=== PATIENT | male | born 1965 | race Caucasian/White ===

== ENCOUNTER 2017-04-24 22:30 | Inpatient (IN) | payer OTHER ==
[~2017-04-24] VITALS: Ht 188 cm; Wt 147.4 kg
[2017-04-24 22:34] VITALS: BP 126/92
[2017-04-24] MEDS ORDERED: SYNTHROID150 MCG PO (22:45)
[2017-04-24 22:58] LABS: ABSOLUTE BASOPHILS 0.1 thou/uL (0.0-0.2); ABSOLUTE EOSINOPHILS 0.1 thou/uL (0.0-0.7); ABSOLUTE LYMPHOCYTES 2.3 thou/uL (0.8-5.3); ABSOLUTE MONOCYTES 0.8 thou/uL (0.0-1.2); ABSOLUTE NEUTROPHILS 5.3 thou/uL (1.6-8.1); BASOPHILS 0.9 %; HEMATOCRIT 40.1 % (42.0-52.0); HEMOGLOBIN 13.4 gm/dL (14.0-18.0); LYMPHOCYTES 27.3 %; MCH 30.5 pg (26.0-34.0); MCHC 33.5 g/dL (28.0-37.0); MCV 91.1 fL (80.0-100.0); MONOCYTES 9.1 %; MPV 8.5 fl. (7.2-11.1); NUCLEATED RBCS 0 /100WBC; PLATELET COUNT* 321 thou/uL (150-400); POLYS 61.7 %; RDW-CV 16.3 % (10.5-14.5); WBC 8.6 thou/uL (4.0-11.0)
[2017-04-24 23:07] LABS: CALCIUM 8.9 mg/dL (8.5-10.1); POTASSIUM 3.9 mmol/L (3.5-5.1)
[2017-04-24 23:22] LABS: ALBUMIN 3.2 g/dL (3.4-5.0); MAGNESIUM 2.2 mg/dL (1.8-2.4); TOTAL BILIRUBIN 1.2 mg/dL (<0.1-1.0); TOTAL PROTEIN 7.3 g/dL (6.4-8.2); TROPONIN-I LEVEL 0.1 ng/mL (<0.06)
[2017-04-25 00:45] VITALS: BP 116/85
[2017-04-25 00:50] VITALS: BP 120/93
--- NOTE | 2017-04-25 01:30 | NUR ---
ASSUMED CARE OF PT AT 0100 FROM THE ER. PT IS ALERT AND ORIENTED. VSS. PERRLA. PT DENIES CHEST PAIN AT THIS TIME. STEADY GAIT. SINUS TACHYCARDIA ON THE TELEMETRY. PT IS RESTING COMFORTABLY IN BED. RESPIRATIONS ARE EVEN AND NONLABORED. WILL CONTINUE TO MONITOR PT.
[2017-04-25 08:15] VITALS: BP 114/79
[2017-04-25 12:28] VITALS: BP 126/77
[2017-04-25 16:00] VITALS: BP 119/86
[2017-04-25 17:14] LABS: INFLUENZA A ANTIGEN None Detected (None Detect); INFLUENZA B ANTIGEN None Detected (None Detect)
--- NOTE | 2017-04-25 19:23 | NUR ---
PT ASSESSMENT CHART. VSS. SOA WHEN AMBULATING. NO COMPLAINTS OF PAIN. STRESS TEST SCHEDULED FOR THURSDAY MORNING SO NPO TOMORROW NIGHT. NO OTHER COMPLAINTS THROUGHOUT THE DAY. HEART HEALTHY DIET STARTED AND TOLERATING WELL.
[2017-04-25 19:55] VITALS: BP 112/71
[2017-04-26] VITALS (21 sets, daily range): BP systolic 105–157; BP diastolic 66–100
--- NOTE | 2017-04-26 01:17 | NUR ---
ASSUMED CARE OF PT AT 1900. PT IS ALERT AND ORIENTED. VSS. PERRLA. NO COMPLAINTS OF PAIN. VSS. PT IS IN SINUS RYTHM ON THE TELEMETRY. PT IS RESTING COMFORTABLY IN BED. RESPIRATIONS ARE EVEN AND NONLABORED. WILL CONTINUE TO MONITOR PT.
[2017-04-26 05:16] LABS: CHOLESTEROL 107 mg/dL (<200); HDL CHOLESTEROL 22 mg/dL (>40); LDL CHOLESTEROL 68 mg/dL (<100); TC:HDL 4.9 Ratio (Not establshd); TRIGLYCERIDE 86 mg/dL (<150); VLDL 17 mg/dL (<40)
[2017-04-26 05:23] LABS: SERUM ASSESSMENT CLEAR
[2017-04-26 09:02] LABS: HEMATOCRIT 42.8 % (42.0-52.0); HEMOGLOBIN 14.5 gm/dL (14.0-18.0); MCH 31.1 pg (26.0-34.0); MCHC 33.9 g/dL (28.0-37.0); MCV 91.7 fL (80.0-100.0); MPV 8.9 fl. (7.2-11.1); RBC 4.67 mil/uL (4.50-6.00); RDW-CV 15.7 % (10.5-14.5); WBC 9.6 thou/uL (4.0-11.0)
[2017-04-26 09:11] LABS: ANION GAP 11 mmol/L (7-16); BUN 14 mg/dL (7-18); CALCIUM 9.3 mg/dL (8.5-10.1); CHLORIDE 103 mmol/L (98-107); CO2 27 mmol/L (21-32); GLUCOSE 126 mg/dL (70-99); POTASSIUM 3.9 mmol/L (3.5-5.1); SODIUM 141 mmol/L (136-145)
[2017-04-26 09:18] LABS: ALBUMIN 3.4 g/dL (3.4-5.0); ALKALINE PHOSPHATASE 72 U/L (46-116); SGOT 29 U/L (15-37); SGPT 37 U/L (30-65); TOTAL BILIRUBIN 0.8 mg/dL (<0.1-1.0); TOTAL PROTEIN 7.6 g/dL (6.4-8.2); TROPONIN-I LEVEL <0.06 ng/mL (<0.06)
[2017-04-26 09:30] LABS: INR 1.2; PROTIME 11.8 Seconds (9.20-11.50)
--- NOTE | 2017-04-26 09:30 | NUR ---
PATIENT HARD TO AROUSE AT 0808. VITALS TAKEN, ALL WITHIN NORMAL LIMITS. IN ROOM, UNABLE TO SPEAK FLUENT FINNISH. RAPID RESPONSE CALLED ON PATIENT, PATIENT UNABLE TO SPEAK, GARBLED WHEN ATTEMPTED. FOLLOWS ALL COMMANDS. INITIAL NIH IS 8. CODE STROKE CALLED, STAT CT DONE AND RESUTLS WERE NEGATIVE, DR AGGARWAL RETURNED CALL, TPA TO BE GIVEN TO PATIENT IMMEDITATLEY. PATIENT LAST KNOWN NORMAL TIME WAS 0730. PATIENT TRANSFERED TO ICU ROOM 2 BY BED WITH NURSING STAFF. REPORT GIVEN TO SIDRA SMILEY. FAMILY UPDATED.
--- NOTE | 2017-04-26 13:28 | NUR ---
PATIENT CARE ASSUMED FROM SHERICE DOWNS AT 0930. PATIENT TRANSFERED FROM [facility] AFTER NEW ONSET STROKE. UPON ARRIVAL, CT COMPLETED, ORDERS FOR TPA IN. CT NEGATIVE. PATIENT BASELINE NIH PRIOR TO INFUSION WAS 7 FOR EXPRESSIVE APHASIA, UNABLE TO ANSWER NAME AND MONTH, AND SLIGHT FACIAL DROOP FOR THE CORNER OF RIGHT MOUTH. TPA BEGAN AT 0954 AND COMPLETED AT 1100. INFUSED IN [facility] WITH NO ISSUES. THEN BEGAN PATIENTS AM ANTIBIOTICS. 30 MINUTES AFTER ANTIBIOTIC INFUSED HAD BEEN SALINE LOCKED, PATIENT ANXIOUS, FAMILY REPORTING THAT PATIENT FEELS THE MEDICATION WAS IN HIS TISSUES. SITE NOT SWOLLEN, NOR WARM. TWO RN'S CHECKED. NOTIFIED THAT NEW IV MAY BE STARTED AT 1900 AFTER PATIENT'S INFUSION COMPLETION TIME R/T EXTREME RISK OF BLEEDING. FAMILY AND PATIENT IN AGREEMENT. DENIES ALL PAIN. NIH BRIEF 5 AT THIS TIME. CHECKING AT 30 MINUTE INTERVALS UNTIL 1700, AND THEN MAY BE CHECKED HOURLY. NO IV/IM STICK SIGN PLACED ON DOOR BY THIS RN.
--- NOTE | 2017-04-26 15:31 | NUR ---
BEDSIDE SWALLOW EVAL COMPLETED BY NURSING. PATIENT HAS SMALL CONCERN R/T COUGH, BUT PATIENT CONTINUALLY COUGHS WITHOUT ORAL INTAKE. VIDEO SWALLOW INDICATED. DR BETH IN TO SEE PATIENT. PERFORMED NEURO EXAM AND ANSWERED FAMILY'S QUESTIONS. MRI TO BE COMPLETED THIS AFTERNOON. CONTINUING WITH CURRENT PLAN OF CARE.
--- NOTE | 2017-04-26 15:55 | EKG ---
[place] [address] ELECTROCARDIOGRAM REPORT Name: IRVING FARAH Room: [address] ADM IN M.R.#: [id number] Admission: 04/24/17 Attend Phys: Linh Arriaga MD Discharge: Date of : 63 Report #: [id number] THIS REPORT FOR: //name// [facility] ED Test Date: 2017-04-24 Test Time: 22:36:29 Pat Name: IRVING FARAH Department: Room: [facility] Gender: Traveling Missionary: SANDER : 1965 Requested By: Davi Baig Order Number: [id number] MD: Reagan Cabral Measurements Intervals [place] Rate: 116 P: 34 GA: 144 QRS: -31 QRSD: 80 T: 57 QT: 346 QTc: 481 Interpretive Statements Sinus tachycardia Inferior infarct, old Baseline wander in lead(s) I,II,aVR No previous ECG available for comparison Electronically Signed On 04-26-2017 15:55:18 STEAM SHOVELMAN by Reagan Cabral [email or web address] <ELECTRONICALLY SIGNED> By: Sonia Cabral MD, [facility] 04/26/17 1555 35 35 Sonia Cabral MD, [facility] /EPI
--- NOTE | 2017-04-26 16:02 | EKG ---
[place] [address] ELECTROCARDIOGRAM REPORT Name: IRVING FARAH Room: [address] ADM IN M.R.#: [id number] Admission: 04/24/17 Attend Phys: Linh Arriaga MD Discharge: Date of : 63 Report #: [id number] THIS REPORT FOR: //name// [facility] Test Date: 2017-04-26 Test Time: 09:02:03 Pat Name: IRVING FARAH Department: Room: [facility] Gender: M Sieve Repairer: CHRISTIANO : 1965 Requested By: Saad Burnett Order Number: [id number] MD: Reagan Cabral Measurements Intervals [place] Rate: 116 P: 41 [place]: 140 QRS: -32 QRSD: 80 T: QT: 339 QTc: 471 Interpretive Statements Sinus tachycardia Inferior infarct, old Lateral leads are also involved No previous ECG available for comparison Electronically Signed On 04-26-2017 16:01:43 VISITOR SERVICES ASSOCIATE by Reagan Cabral [email or web address] <ELECTRONICALLY SIGNED> By: Sonia Cabral MD, [facility] 04/26/17 1601 1 1 Sonia Cabral MD, [facility] /EPI
--- NOTE | 2017-04-26 17:22 | NUR ---
PATIENT TOLERATED MRI. RESULTS CALLED TO DR BETH AT 1715. NO NEW ORDERS. PATIENT TO COMPLETE ECHO TOMORROW, AND SHE WOULD LIKE TO SEE THOSE RESULTS. PATIENT NOW RESTING IN BED WITH FAMILY PRESENT. DENIES ALL NEEDS AT THIS TIME.
--- NOTE | 2017-04-26 18:05 | NUR ---
PATIENT PROGRESSING TOWARDS GOALS. NIH, BRIEF REMAINS 5. PATIENT IS NOW ABLE TO SAY A FEW WORDS, BUT OTHERWISE THE SAME. HAS NOT URINATED, BUT DOCUMENTED VOID PRIOR TO TPA FROM THIS AM UNMEASURED. PATIENT HAS HAD A FEW SIPS OF WATER UNDER SUPERVISION, TOLERATED FAIRLY WELL, BUT STILL MAY NEED SWALLOW EVAL. AFEBRILE. TRACING SINUS TACH ON MONITOR WITH NO ECTOPY. NIH SCALES ARE NOW HOURLY UNTIL 0900 AND THEN Q4H AFTER. FAMILY DENIES QUESTIONS AT THIS TIME.
[2017-04-27] VITALS (19 sets, daily range): BP systolic 111–146; BP diastolic 39–110
[2017-04-27 02:06] LABS: GLYCOHEMOGLOBIN (HGB A1C) 6.8 % (4.8-5.6)
[2017-04-27 05:18] LABS: ALBUMIN 3.3 g/dL (3.4-5.0); ALKALINE PHOSPHATASE 71 U/L (46-116); ANION GAP 11 mmol/L (7-16); BUN 13 mg/dL (7-18); CALCIUM 9.4 mg/dL (8.5-10.1); CHLORIDE 104 mmol/L (98-107); CHOLESTEROL 127 mg/dL (<200); CO2 26 mmol/L (21-32); GLUCOSE 198 mg/dL (70-99); HDL CHOLESTEROL 25 mg/dL (>40); LDL CHOLESTEROL 90 mg/dL (<100); POTASSIUM 4.4 mmol/L (3.5-5.1); SGOT 31 U/L (15-37); SGPT 38 U/L (30-65); SODIUM 141 mmol/L (136-145); TC:HDL 5.1 Ratio (Not establshd); TOTAL BILIRUBIN 0.9 mg/dL (<0.1-1.0); TOTAL PROTEIN 7.1 g/dL (6.4-8.2); TRIGLYCERIDE 63 mg/dL (<150); VLDL 13 mg/dL (<40)
[2017-04-27 05:19] LABS: SERUM ASSESSMENT CLEAR
--- NOTE | 2017-04-27 06:00 | NUR ---
PATIENT PROGRESSING TOWARDS GOALS. NIH OF 3, ALERT, KNOWS MONTH AND AGE, OBEYS COMMANDS. PT ABLE TO FORMULATE 4-5 LETTER SENTENCES. SPOKE WITH THIS MORNING ABOUT CARE. NO CURRENT CONCERNS AT THIS TIME. HEMODYNAMICALLY STABLE OVER NIGHT NO ACUTE CHANGES. PT HAS NOT VOIDED DURING THE SHIFT. PATIENT STATED HE CAN VOID ON HIS OWN AND WANTS TO TRY. WILL CONTINUE TO MONITOR CLOSELY.
--- NOTE | 2017-04-27 10:15 | NUR ---
INTERDISICPLINARY ROUNDS: MET WITH PT, DTJuan/SHIRLEY AND YANNA/TOSIN WHO ASSISTED WITH TRANSLATING. PT SPEAKS SOME SAMI BUT MOSTLY [place] SPEAKING. DID STATE UNSTANDS SAMI WELL. PT LIVES WITH AND 3 CHILDREN. HE WORKS IN [employer] AND IS INDEPENDENT AND ACTIVE. USES NO EQUIPMENT. PT HAS A DR IN [facility] THAT HE SEES EVERY OTHER MONTH OR SO. DOES NOT HAVE INSURANCE OR A DR IN THIS AREA. PT STATES FEELING MUCH IMPROVED TODAY. DENIES NEEDS. GAVE PT INFO ON COMMUNITY RESOURCES, DISCUSSED F/U CARE AND [facility], GAVE DISCOUNT DRUG CARD ALSO. PT STATES HE CAN READ SAMI. WILL FOLLOW
--- NOTE | 2017-04-27 10:33 | NUR ---
Nutrition: Consult received for "obesity." Pt admitted with elevated troponin. Has expressive aphasia, DM II on insulin, stroke, edema, on steroids. Currently NPO. Will educate on healthy lifestyle, DM, obesity, heart health once pt is out of ICU. Will follow up by 04/30/17.
--- NOTE | 2017-04-27 13:14 | 2DMMODE ---
[place] [address] 2 D/M-MODE ECHOCARDIOGRAM Name: IRVING FARAH Room: [address] IN [facility]#: [id number] Admission: 04/24/17 Attend Phys: Linh Arriaga, Discharge: Date of : 63 Date of Service: 04/27/17 1314 Report #: [id number] THIS REPORT FOR: //name// APPROVED REPORT Study performed: 04/27/2017 10:47:06 EXAM: Comprehensive 2D, Doppler, and color-flow Echocardiogram Patient Location: In-Patient Room #: 002 Status: routine BSA: 2.67 HR: 118 bpm BP: 135/92 mmHg Rhythm: NSR Other Information Technically limited study due to body habitus, poor endocardial definition. Indications CVA/TIA Elevated Troponin Echo Enhancing Agent Indication: Endocardial border delineation, rule out shunt Agent(s) / Amount(s) Used: Optison 3 cc Agitated Saline 10 cc 2D Dimensions LVEF(%): 30.39 (>50%) IVSd: 8.94 (7-11mm) LVOT Diam: 23.57 (18-24mm) LVDd: 62.11 mm PWd: 8.54 (7-11mm) Ascending Ao: 35.11 (22-36mm) LVDs: 53.04 (25-40mm) Aortic Root: 35.63 mm Woods's LVEF: 30.39 % Volumes Left Atrial Volume (Systole) LA ESV Index: 38.70 mL/m2 Aortic Valve AoV Peak Akil.: 0.92 m/s AO Peak Gr.: 3.39 mmHg LVOT Max P.31 [place] [address] 2 D/M-MODE ECHOCARDIOGRAM Name: IRVING FARAH Room: [address] IN ..#: [id number] Admission: 04/24/17 Attend Phys: Linh Arriaga, Discharge: Date of : 63 Date of Service: 04/27/17 1314 Report #: [id number] AO Mean Gr.: 2.12 mmHg LVOT Mean P.27 mmHg LVOT Max V: 0.76 m/s AO V2 VTI: 11.56 cm LVOT Mean V: 0.52 m/s CHELSEY (VTI): 4.83 cm2 LVOT V1 VTI: 12.80 cm Mitral Valve MV Decel. Time: 121.23 ms MV PHT: 35.16 ms MVA (PHT): 6.26 cm2 TDI Lateral E' Akil.: 0.12 m/s Pulmonary Valve PV Peak Akil.: 0.65 m/s PV Peak Gr.: 1.68 mmHg Tricuspid Valve TR Peak Gr.: 28.34 mmHg RVSP: 33.00 mmHg Left Ventricle Left ventricle is moderately dilated. There is global hypokinesis of the left ventricle. There is normal left ventricular wall thickness. Left ventricular systolic function is severely decreased. LVEF is 25%. Grade I - abnormal relaxation pattern. Right Ventricle The right ventricle is normal size. The right ventricular systolic function is normal. Atria Left atrium is mildly dilated. Technically difficult bubble study. Cannot rule out presence of PFO based on images obtained. The right atrium size is normal. Aortic Valve The aortic valve is normal in structure. No aortic regurgitation is present. There is no aortic valvular stenosis. Mitral Valve The mitral valve is normal in structure. Mild mitral regurgitation. No evidence of mitral valve stenosis. Tricuspid Valve The tricuspid valve is normal in structure. Mild tricuspid regurgitation. The RVSP is 30-[place] [address] 2 D/M-MODE ECHOCARDIOGRAM Name: IRVING FARAH Room: [address] IN [facility]#: [id number] Admission: 04/24/17 Attend Phys: Linh Arriaga, Discharge: Date of : 63 Date of Service: 04/27/17 1314 Report #: [id number] Pulmonic Valve The pulmonary valve is normal in structure. Trace pulmonic regurgitation. Great Vessels The aortic root is normal in size. IVC is normal in size and collapses with >50% inspiration Pericardium There is no pericardial effusion. <Conclusion> Left ventricle is moderately dilated. There is normal left ventricular wall thickness. Left ventricular systolic function is severely decreased. LVEF is 25%. Grade I - abnormal relaxation pattern. The right ventricle is normal size. Left atrium is mildly dilated. The aortic valve is normal in structure. The mitral valve is normal in structure. Mild mitral regurgitation. The tricuspid valve is normal in structure. Mild tricuspid regurgitation. The RVSP is 30-35 mmHg. IVC is normal in size and collapses with >50% inspiration There is no pericardial effusion. There is global hypokinesis of the left ventricle. Technically difficult bubble study. Cannot rule out presence of PFO based on images obtained. <ELECTRONICALLY SIGNED> By: Marcus Almendarez MD, FACC 04/27/17 1314 13 131 Marcus Almendarez MD, FACC /INF
[2017-04-27 17:11] LABS: GLYCOHEMOGLOBIN (HGB A1C) 6.7 % (4.8-5.6)
--- NOTE | 2017-04-27 17:30 | NUR ---
RECIEVED CONSULT FOR POSSIBLE REHAB AMISSION. CONSULT HAS BEEN ACKNOWLEDGED BY WASH TUB MACHINE OPERATOR AND DR. DIAZ. Pt WAS ADMITTED TO THE HOSPITAL CODE STROKE WAS CALLED AND Pt RECEIVED TPA AND WAS ADMITTED TO ICU. PT AND ST EVALUATED Pt TODAY, HE HAS DEFINATED ST NEEDS, PT EVAL WAS DONE AT BEDSIDE IN ICU AND GAIT ENDURANCE AND TOLERANCE WILL BE ASSESSED ONCE Pt IS TELE STATUS. OT EVAL IS PENDING. WILL FOLLOW ALONG WITH THIS Pt TO SEE HOW HE PROGRESSES MEDICALLY AND WITH THERAPIES TO DETERMINE IF HE QUALIFIES FOR ACUTE REHAB. THANK YOU FOR THIS CONSULT.
--- NOTE | 2017-04-27 18:47 | NUR ---
NIHSS HAS REMAINED 1-2. PATIENT RESTED WELL THROUGHOUT DAY. PATIENT TO CT, TOLERATED WELL. PATIENT DENIES COMPLAINTS AND CONCERNS. PATIENT DOWNGRADED TO TELE STATUS.
[2017-04-28] VITALS: BP 148/38
[2017-04-28 04:00] VITALS: BP 146/77
--- NOTE | 2017-04-28 07:21 | NUR ---
PATIENT PROGRESSING TOWARDS GOALS. NIHSS OF 1. NO ACUTE CHANGES OVER NIGHT. EDUCATION PROVIDED ON CARE. NO QUESTIONS/CONCERNS VOICED. REMAINS TACHY. CALL LIGHT IN PLACE. BED TO LOWEST POSITION. WILL CONTINUE TO MONITOR.
[2017-04-28 08:00] VITALS: BP 123/90
[2017-04-28 09:48] VITALS: BP 117/89
--- NOTE | 2017-04-28 10:18 | NUR ---
CARE ASSUMED AT 0700. PATIENT AWAKE UPON ENTERING ROOM. NIH SCALE 1 AT THIS TIME FOR MINOR APHASIA. PATIENT UP TO SIDE OF THE BED TO EAT THIS AM. INSULIN DOSE INCREASED TO MODERATE FOR BG <200 X2. PHYSICIAN IN TO SEE PATIENT. [facility] EDUCATION GIVEN ABOUT STROKE RECOVER AND THE NEED TO IMPROVE DIET AND EXERCISE PRIOR TO ATTEMPTING TO START DIABETIC MEDICATION. PATIENT IN AGREEMENT. DENIED FURTHER CONCERNS. CARE TRANSFERED TO SHERICE KOWALSKI AT 1020.
--- NOTE | 2017-04-28 14:18 | NUR ---
Nutrition: Consult received for "stroke." RD is planning to educate pt when off of ICU floor. Consult was also received for obseity. Pt speaks Nepalese, has expressive aphasia, DM II on insulin and steroids. A1c 6.5%, and pt will be controlling BG with diet and exercise before trying any RX. RD to educate pt on heart health and CHO counting when off of ICU floor. Follow up by 04/30/17.
--- NOTE | 2017-04-28 15:01 | CON ---
[address] [address] CONSULTATION Name: IRVING FARAH Room: [address] ADM IN M.R.#: [id number] Admission: 04/24/17 Attend Phys: Linh Arriaga MD Discharge: Date of : 63 Report #: [id number] THIS REPORT FOR: //name// CC: ANNALISA physician/PCP Linh Arriaga HISTORY OF PRESENT ILLNESS: I was asked by Dr. Linh Arriaga to see this 51-year-old gentleman for evaluation and treatment of chest pain and an elevated troponin. His troponin was 0.1. The second troponin was 0.09. Others are pending. He has had chest pain since the . He also has had upper back pain. His pain is in the right chest and particularly laterally and in the back. He describes the pain as moderate in severity and continuous and dull. His chest x-ray in fact shows pneumonia. There is also pleural effusion. A CT was also performed, which shows the same findings. He also has maxillary sinusitis. The sinusitis is bilateral and described as acute. He has not had classic angina. He says his chest discomfort is worse with activity, but not really better with rest, it occurs at rest. There is associated shortness of breath with all of this. He seems to think it is a little worse with food. He does have chronic dyspnea on exertion. He is 6 feet 2 inches tall and weighs 325 pounds. He does have some degree of chronic orthopnea and PND. It is worse now. He has not had any edema. He has not had syncope. Coronary risk factors include smoking. He was told in no uncertain terms to stop smoking today. He denies hypercholesterolemia, he denies diabetes. He denies high blood pressure. There is a family history of coronary artery disease in both his mother and father. He has not had renal disease or peripheral vascular disease. He has never had a stroke or transient ischemic attack. He does not have any open or nonhealing wounds or claudication. PAST MEDICAL HISTORY: Remarkable for hyperthyroidism that has been treated with radioactive iodine and resulted in him now being hypothyroid. ALLERGIES: He has no known allergies. MEDICATIONS: He takes no medications. REVIEW OF SYSTEMS: Positive for cough, chest discomfort, shortness of breath with exercise, shortness of breath lying down, thyroid trouble, and bleeding from the nose. Otherwise, his review of systems is negative for some 40 different complaints in 14 different system categories. Please see review of system form for details and negatives in review of systems. SOCIAL HISTORY: He is , does not smoke, drink or use illegal drugs. FAMILY HISTORY: His father and mother from myocardial infarctions, his father apparently when he was very young, perhaps in his late 30s or early 40s. PHYSICAL EXAMINATION: [facility] [address] [place] [address] CONSULTATION Name: IRVING FARAH Room: [address] [facility]#: [id number] Admission: 04/24/17 Attend Phys: Linh Arriaga MD Discharge: Date of : 63 Report #: [id number] GENERAL: He presents as a well-developed, well-nourished, obese white male, in no acute distress. VITAL SIGNS: Pulse was 109, blood pressure 120/93, respirations 16 and regular, temperature is 98 degrees. HEENT: Head was atraumatic. Eyes clear. NECK: Supple. There is no jugular venous distention or hepatojugular reflux. Thyroid is not enlarged. There is no adenopathy. SKIN: Warm and dry. Mucous membranes are moist. LUNGS: Clear to auscultation and percussion except for right basilar and mid lung field rales. There are no other abnormalities on examination of the lungs. HEART: Revealed distant first and second heart sounds. There is no S4, no S3, no murmurs, rubs, thrills, heaves or gallops. Rhythm is regular, rate was approximately 100. PMI is not displaced. ABDOMEN: Obese, soft, flat, nontender, no palpable masses, no organomegaly. EXTREMITIES: Reveal no cyanosis, clubbing or edema. NEUROLOGIC: The patient mentated normally, talked normally and moved all extremities normally. LABORATORY DATA: EKG demonstrates normal sinus rhythm. There is an old inferior myocardial infarction with probably some lateral involvement as well. Portable chest x-ray revealed right basilar consolidation and pleural effusion suspicious for pneumonitis and peripneumonic effusion. There was cardiomegaly as well, although it was an AP film. CT of the chest and CT pulmonary angiogram demonstrated the above findings. There was consolidation in the right lower lobe, atelectasis versus scar in the lingula and right middle lobe. There are several nodules seen. There was a moderate right pleural effusion, no pneumothorax. CTA was unremarkable. CT of the head revealed an old lacunar infarct in the left couch radiata, acute bilateral maxillary sinusitis. His NT-proBNP was 2111. IMPRESSION: 1. Chest pain. This is likely due to his pneumonia. 2. Dyspnea on exertion, also likely due to his pneumonia. 3. Hypothyroidism. 4. Pneumonia, it is likely pneumococcal. 5. Pleural effusion. 6. Maxillary acute sinusitis. 7. Minimally elevated troponin. RECOMMENDATION: We will aggressively treat his pneumonia and sinusitis with antibiotics. I suspect this may be pneumococcal in origin. I would check a Lexiscan Cardiolite stress test and an echo. I would also check [place] [address] CONSULTATION Name: IRVING FARAH Room: [address] IN M.R.#: [id number] Admission: 04/24/17 Attend Phys: Linh Arriaga MD Discharge: Date of : 63 Report #: [id number] Thank you very much for asking me to see the patient. If there are any questions, please feel free to contact me. <ELECTRONICALLY SIGNED> By: Sonia Cabral MD, FACC 04/28/17 1501 [id number]. Reagan Cabral MD, FACC /nt
[2017-04-28 15:57] VITALS: BP 122/82
--- NOTE | 2017-04-28 17:32 | EKG ---
[place] [address] ELECTROCARDIOGRAM REPORT Name: IRVING FARAH Room: [address] ADM IN M.R.#: [id number] Admission: 04/24/17 Attend Phys: Linh Arriaga MD Discharge: Date of : 63 Report #: [id number] THIS REPORT FOR: //name// [facility] ED Test Date: 2017-04-24 Test Time: 22:37:10 Pat Name: IRVING FARAH Department: Room: [address] Gender: M Manager Integrity: SANDER : 1965 Requested By: Davi Baig Order Number: [id number] Teresita MD: Lionel Dixon Measurements Intervals [place] Rate: 115 P: 38 AR: 133 QRS: -30 QRSD: 86 T: QT: 348 QTc: 482 Interpretive Statements Sinus tachycardia Inferior infarct, old Lateral leads are also involved Compared to ECG 04/24/2017 22:36:29 No significant changes Electronically Signed On 04-28-2017 17:32:11 VISUAL JOURNALIST by Lionel Dixon [email or web address] <ELECTRONICALLY SIGNED> By: Lionel Dixon MD, [facility] 04/28/17 1732 36 36 Lionel Dixon MD, [facility] /EPI
--- NOTE | 2017-04-28 18:37 | NUR ---
ASSUMED CARE OF PT AROUND 1200. ASSESSMENT CHARTED. AFEBRILE. HAT FORMING MACHINE OPERATOR SPOKE WITH PT. WILL UNDERGO A KANE TOMORROW. FAMILY UPDATED ON PLAN OF CARE.
[2017-04-28 20:00] VITALS: BP 127/85
[2017-04-29] VITALS (31 sets, daily range): BP systolic 97–145; BP diastolic 48–106
--- NOTE | 2017-04-29 05:24 | NUR ---
PT CARE ASSUMED AFTER TRANSFER FROM ICU. SR ON MONITOR. O2 3L NC. NPO FOR PROCEDURE TODAY. IVF INFUSING. DENIES PAIN. FAMILY AT BEDSIDE. PROGRESSING TOWARDS GOALS.
--- NOTE | 2017-04-29 09:53 | NUR ---
ASSUMED CARE OF PT AT 0730. PT RESTING IN BED WITH EYES CLOSED. FAMILY AT BEDSIDE. PT A&0X4, DENIES ANY PAIN OR SHORTNESS OF BREATH AT THIS TIME. PT TRACING ST ON THE CORE JAVA ENGINEER. ON 3L NC SAT 97%. NIH COMPLETED. PT SCORING 1 FOR MINOR APHASIA. IVF. PT UP SBA TO BATHROOM. PT NPO AT THIS TIME FOR KANE. CONSENT SIGNED AND PLACED IN FRONT OF CHART. PT GOAL FOR TODAY IS TO HAVE KANE AND WORK WITH PHYSICAL AND OCCUPATIONAL THERAPY TO INCREASE ACTIVITY AND ENDURANCE. POSSIBLE DISCHARGE HOME LATER TODAY. AM ASSESSMENT CHARTED. MEDICATIONS PER JUN. PT REPOSITIONS SELF IN BED WITH REMINDERS. HOURLY ROUNDING OBSERVED. BED IN LOW POSITION. CALL LIGHT WITHIN REACH. WILL CONTINUE PLAN OF CARE.
--- NOTE | 2017-04-29 15:14 | TEE ---
[place] [address] TRANSESOPHAGEAL ECHOCARDIOGRAM Name: IRVING FARAH Room: [address] IN [facility]#: [id number] Admission: 04/24/17 Attend Phys: Linh Arriaga, Discharge: Date of : 63 Date of Service: 04/29/17 1514 Report #: [id number] THIS REPORT FOR: //name// APPROVED REPORT Study performed: 04/29/2017 09:14:40 EXAM: Transesophageal Echocardiogram Patient Location: In-Patient Room #: 002 Status: routine BSA: 2.67 HR: 116 bpm BP: 112/70 mmHg Rhythm: NSR Other Information Study Quality: Good Indications CVA/TIA NSTEMI Echo Enhancing Agent Indication: Rule out Shunt Agent(s) / Amount(s) Used: Agitated Saline 10 cc Procedure After obtaining informed consent, patient underwent transesophageal echo in the [employer]. Type of Sedation : Conscious Sedation Sedation was administered by Mabel Park RN. Sedation start time: 912 Case end Time: 926 Sedation was achieved intravenously with: Versed (3) Fentanyl (75) Transesophageal probe was inserted and advanced into esophagus without difficulty by Lionel Dixon MD, FACC. Echo enhancement indication: R/O Septal defect. Echo enhancement agent administered: Agitated Saline The KANE was performed without complications. Throughout the procedure, the blood pressure, pulse oximetry, cardiac rhythm, and rate were monitored. The patient tolerated the procedure without adverse effects. Recovery from conscious sedation was uneventful [place] [address] TRANSESOPHAGEAL ECHOCARDIOGRAM Name: BERT FARAHO Room: [address] IN [facility]#: [id number] Admission: 04/24/17 Attend Phys: Linh Arriaga, Discharge: Date of : 63 Date of Service: 04/29/17 1514 Report #: [id number] Left Ventricle Left ventricle is moderately dilated. Global hypokinesis noted. There is normal left ventricular wall thickness. Left ventricular ejection fraction is severely decreased. LVEF is 20-25%. Right Ventricle The right ventricle is normal size. The right ventricular systolic function is normal. Atria Left atrium is mildly dilated. No thrombus is visualized in the left atrium or appendage. Atrial septal defect is present with significant right to left flow on inspiration. Right atrium is mildly dilated. Aortic Valve The aortic valve is normal in structure. No aortic regurgitation is present. There is no aortic valvular stenosis. Mitral Valve The mitral valve is normal in structure. Mild mitral regurgitation. No evidence of mitral valve stenosis. Tricuspid Valve The tricuspid valve is normal in structure. Mild tricuspid regurgitation. Pulmonic Valve The pulmonary valve is normal in structure. There is no pulmonic valvular regurgitation. Great Vessels The aortic root is normal in size. The ascending aorta is normal in size. Pulmonary artery is not well visualized. Pericardium There is no pericardial effusion. <Conclusion> Left ventricle is moderately dilated. There is normal left ventricular wall thickness. Left ventricular ejection fraction is severely decreased. LVEF is 20-25%. Global hypokinesis noted. Left [place] [address] TRANSESOPHAGEAL ECHOCARDIOGRAM Name: GRAEME FARAHBERTO Room: [address] IN .R.#: [id number] Admission: 04/24/17 Attend Phys: Linh Arriaga, Discharge: Date of : 63 Date of Service: 04/29/17 1514 Report #: [id number] No thrombus is visualized in the left atrium or appendage. Left atrium is mildly dilated. No thrombus is visualized in the left atrium or appendage. Right atrium is mildly dilated. Atrial septal defect is present with significant right to left flow on inspiration. Mild mitral regurgitation. Mild tricuspid regurgitation. <ELECTRONICALLY SIGNED> By: Lionel Dixon MD, FACC 04/29/17 1514 1514 1514 Lionel Dixon MD, FACC /INF
[2017-04-29 15:36] LABS: CALCIUM 9.5 mg/dL (8.5-10.1); CREATININE 1.4 mg/dL (0.6-1.3); POTASSIUM 4.9 mmol/L (3.5-5.1)
--- NOTE | 2017-04-29 17:50 | NUR ---
PT RETURNED FROM [facility] AT APPROXIMATELY 1015. KANE SHOWING PFO AND LOW EF AT 20-35%. FAMILY AT BEDSIDE. PT GIVEN ICE CHIPS AT APPROXIMATELY 1100 AND DIET ADVANCED FOR LUNCH. PT TOLERATED WELL. AT APPROXIMATELY 1430 PT NOTED TO BE TACHYCARDIC ON THE TRANSPORTATION AIDE AND SON STATED HE WAS SHORT OF BREATH. PT SAT 84-85 ON 3L NC. PT O2 INCREASED TO 6L NC SAT 95%. CRACKLES NOTED WHICH WERE NOT PRESENT WITH AM ASSESSMENT. RESPIRATORY IN ROOM FOR BREATHING TREATMENT. DR NOTIFIED. ORDERS RECEIVED FOR STAT CXR, STAT LABS INCLUDING BNP AND TROPONIN, STAT EKG AND ONE TIME DOSE OF LASIX 40MG IVP. EKG TRACING ST WITH OLD INFARCT. TROPONIN BACK AT 0.25. CARDIOLOGY NOTIFIED. ORDER RECEIVED FOR ELIQUIS BID AND TO GIVE EVENING DOSE EARLY. REFER TO EMAR. SECOND TROPONIN BACK AT 0.21, TRENDING DOWN. CXR SHOWING CARDIOMEGALY, RIGHT INFILTRATE AND EFFUSION, NOT MUCH CHANGE FROM PREVIOUS. PT PUT OUT 1,000ML URINE OUT AFTER IV LASIX, CLEAR YELLOW URINE. BNP ALSO ELEVATED AT 6456. NIH COMPLETED Q4H. PT SCORING 1 FOR MILD APHASIA. PT CONTINUES TO TRACE ST ON THE TRANSPORTATION AIDE. PT TITRATED TO 3L NC AT APPROXIMATELY 1800 AND CURRENT SAT IS 94%. PT STATES HE FEELS BETTER. PT UP SBA TO BATHROOM. VOIDS PER URINAL. SPEECH THERAPY HERE TO SEE PT. STATES SOME IMPROVEMENT FROM YESTERDAYS THERAPY. MUTIPLE FAMILY MEMEBERS REMAIN AT BEDSIDE THROUGHOUT SHIFT. MEDICATIONS PER MAR. PT REPOSITIONS SELF IN BED WITH REMINDERS. HOURLY ROUNDING OBSERVED. BED IN LOW POSITION. BED ALARM IN PLACE. FALL PRECAUTIONS IN PLACE. CALL LIGHT WITHIN REACH. WILL CONTINUE PLAN OF CARE.
[2017-04-30 00:29] VITALS: BP 109/72
[2017-04-30 04:31] VITALS: BP 127/85
--- NOTE | 2017-04-30 05:06 | NUR ---
PT CARE ASSUMED AFTER REPORT. ASSESSMENT COMPLETE. ST ON MONITOR. DENIES PAIN. NIH Q4H. UP WITH STAND BY ASSIST. FALL PRECAUTIONS IN PLACE INCLUDING BED ALARM. CALL LIGHT IN REACH. BED IN LOWEST POSITION. PROGRESSING TOWARDS GOALS.
[2017-04-30 07:39] LABS: CALCIUM 9.3 mg/dL (8.5-10.1); CREATININE 1.1 mg/dL (0.6-1.3); POTASSIUM 4.3 mmol/L (3.5-5.1)
[2017-04-30 08:00] VITALS: BP 129/93
--- NOTE | 2017-04-30 10:42 | NUR ---
ASSUMED CARE OF PT AT 0730 AFTER RECIEVING BEDSIDE REPORT FROM REEL FED PRINTER NURSE. PT CONTINUES TO BE A&O X3, CALM AND COOPERASTIVE. DENIES ANY C/O PAIN OR DISTRESS AND HAS BEEN VOIDING VIA URINAL. PT AMBULATED IN THE FELDMAN WITH PT THIS AM AND MADE TWO LAPS AROUND THE UNIT. HIS GAIT IS STEADY AND DENIES ANY SOA. NURSING WILL CONTINUE TO MONITOR.
[2017-04-30 12:00] VITALS: BP 118/78
--- NOTE | 2017-04-30 13:24 | NUR ---
Per [employer], Pt is not [place] Medicaid eligible.
--- NOTE | 2017-04-30 15:45 | EKG ---
[place] [address] ELECTROCARDIOGRAM REPORT Name: IRVING FARAH Room: [address] ADM IN M.R.#: [id number] Admission: 04/24/17 Attend Phys: Linh Arriaga MD Discharge: Date of : 63 Report #: [id number] THIS REPORT FOR: //name// [facility] Test Date: 2017-04-29 Test Time: 14:45:37 Pat Name: IRVING FARAH Department: Room: [address] Gender: M Railroad Conductor: : 1965 Requested By: Saad Burnett Order Number: [id number] Teresita MD: Marcus Almendarez Measurements Intervals [place] Rate: 113 P: 50 CO: 123 QRS: -27 QRSD: 88 T: 72 QT: 339 QTc: 465 Interpretive Statements Sinus tachycardia Inferior infarct, old Compared to ECG 04/26/2017 09:02:03 No significant changes Electronically Signed On 04-30-2017 15:44:54 CHEF'S ASSISTANT by Marcus Almendarez [email or web address] <ELECTRONICALLY SIGNED> By: Marcus Almendarez MD, [facility] 04/30/17 1544 1445 1445 Marcus Almendarez MD, FAC /EPI
[2017-04-30 16:14] VITALS: BP 118/65
--- NOTE | 2017-04-30 18:35 | NUR ---
PT CONTINUES TO IMPROVE AND DENIES ANY SOA TODAY. NIH SCORE IS 0. PT HAS FAMILY AT BEDSIDE AND HAS HAD NO C/O PAIN OR DISCOMFORT TODAY. VSS ON 3L NC. NURSSING ASSESSMENT COMPLETED AND CHARTED. MEDICATIONS ADMINISTERED PER MAR. CALL LIGHT AND PERSONAL ITEMS WITH IN REACH. NURSING WILL CONTINUE WITH CURRENT POC.
--- NOTE | 2017-04-30 21:16 | NUR ---
PT IS SCORED 1 FOR MILD TO MODERATE APHASIA. THIS IS VERY HARD TO SCORE BECAUSE PT IS UNABLE TO READ SLOVENIAN AND HIS SLOVENIAN IS VERY POOR. FAMILY STATES THAT HE HAS A LOST FOR WORDS AND BECAUSE OF THAT I SCORED A 1.
[2017-05-01] VITALS: BP 110/53
--- NOTE | 2017-05-01 02:30 | NUR ---
ASSUMED CARE OF PT AT 1900. PT IS ALERT AND ORIENTED. VSS. PERRLA. NO COMPLAINTS OF PAIN. STEADY GAIT. NIH IS 1. PT IS IN SINUS RYTHM ON THE TELEMETRY. PT IS RESTING COMFORTABLY IN BED. RESPIRATIONS ARE EVEN AND NONLABORED. WILL CONTINUE TO MONITOR PT.
[2017-05-01 04:00] VITALS: BP 105/70
[2017-05-01 05:01] LABS: HEMATOCRIT 42.5 % (42.0-52.0); HEMOGLOBIN 13.6 gm/dL (14.0-18.0); MCH 29.4 pg (26.0-34.0); MPV 8.3 fl. (7.2-11.1); NUCLEATED RBCS 0 /100WBC; PLATELET COUNT* 342 thou/uL (150-400); RBC 4.62 mil/uL (4.50-6.00); RDW-CV 16.2 % (10.5-14.5); WBC 11.7 thou/uL (4.0-11.0)
[2017-05-01 05:35] LABS: ALBUMIN 3.1 g/dL (3.4-5.0); CALCIUM 9.4 mg/dL (8.5-10.1); CREATININE 1.1 mg/dL (0.6-1.3); POTASSIUM 4.5 mmol/L (3.5-5.1); TOTAL BILIRUBIN 0.7 mg/dL (<0.1-1.0); TOTAL PROTEIN 6.3 g/dL (6.4-8.2)
[2017-05-01 05:48] LABS: ABSOLUTE LYMPHOCYTES 0.7 thou/uL (0.8-5.3); ABSOLUTE MONOCYTES 0.6 thou/uL (0.0-1.2); ABSOLUTE NEUTROPHILS 10.4 thou/uL (1.6-8.1); ANISOCYTOSIS 1+; PLATELET ESTIMATE ADEQUATE; POIKILOCYTOSIS 1+
[2017-05-01 08:00] VITALS: BP 103/80
[2017-05-01 08:26] VITALS: BP 103/80
--- NOTE | 2017-05-01 09:54 | NUR ---
Nutrition follow up: Pt is new diabetic and new stroke. Speaks Comoran, reads well in Mongolian. setter automatic spinning lathe, Chelsie, seeing pt today for further education on heart health. Handouts on CHO control and low Na diets were provided by RD. RD contact info also provided for patient/family to call with questions/concerns.
--- NOTE | 2017-05-01 13:09 | NUR ---
Pt to dc to home today. Pt will need home o2. Faxed referral to [employer], Pts is private pay, the cost will be $133/month, plus $35 for delivery, family in agreement that they can pay. [facility] to contact jazmyn Mccaule[facility], to make payment arrangements, they will deliver tank to the room. Discussed outpt ST and informed of Rome[facility]'s program. CM will fax order to [facility], and provided contact info to Pt. Per Silvia at [facility], since Pt lives in [facility], Pt will pay $15 per visit, informed Pt and family.
[2017-05-01] MEDS ORDERED: LIPITOR10 MG PO (15:57)
[2017-05-01] MEDS ORDERED: ELIQUIS5 MG PO (15:57)
[2017-05-01] MEDS ORDERED: LISINOPRIL5 MG PO (15:58)
[2017-05-01] MEDS ORDERED: ASPIRIN325 PO (16:00)
[2017-05-01] MEDS ORDERED: PREDNISONE 10 M10 MG PO (16:04)
[2017-05-01] MEDS ORDERED: NITROGLYCERIN0.4 MG SUBLING (16:05)
[2017-05-01] MEDS ORDERED: AZITHROMYCIN 2250 MG PO (16:07)
[2017-05-01] MEDS ORDERED: DUONEB 2.5-0.5 M3 ML INH (16:10)
[2017-05-01] MEDS ORDERED: COMBIVENT INH (16:11)
[2017-05-01] MEDS ORDERED: CARVEDILOL3.125 MG PO (16:15)
--- NOTE | 2017-05-01 17:20 | NUR ---
ASSUMED CARE OF PT AT 0730. PT HAS CONTINUED TO BE A&O X4, CALM AND COOPERATIVE. PT DISCHARGED HOME WITH FAMILY. PT AND FAMILY VERBALIZED UNDERESTANDING OF DISCHARGRE INSTRUCTIONS INCLUDING MEDICATION TEACHING. PT DENIED ANY C/O PAIN, DISTRESS, N/V, OR CP AT DISCHARGE. ZIGZAG APPLIQUER AND IV REMOVED PRIOR TO DISCHARGE.
== END 2017-05-01 16:50 | disposition home or self-care (01) | DRG 61 ==
LOC: M.ERS 22:30 → M.TBA-ER 23:55 → M.2W 23:55 → M.ICU 04-26 09:56 → M.2W 04-28 23:15
PROVIDERS: Emergency Medicine Emergency Medical Services; Internal Medicine; ADMIT Internal Medicine
DX: I63.9 Cerebral infarction, unspecified (principal); J96.00 Acute respiratory failure, unspecified whether with hypoxia or hypercapnia; J15.9 Unspecified bacterial pneumonia; J90 Pleural effusion, not elsewhere classified; R07.9 Chest pain, unspecified; E03.9 Hypothyroidism, unspecified; J01.00 Acute maxillary sinusitis, unspecified; F17.210 Nicotine dependence, cigarettes, uncomplicated; E11.9 Type 2 diabetes mellitus without complications; D64.9 Anemia, unspecified; E78.5 Hyperlipidemia, unspecified; B96.89 Other specified bacterial agents as the cause of diseases classified elsewhere; I50.9 Heart failure, unspecified; Z90.49 Acquired absence of other specified parts of digestive tract; Z82.49 Family history of ischemic heart disease and other diseases of the circulatory system